=== PATIENT | female | born 1935 | race Caucasian/White ===

== ENCOUNTER 2020-08-11 16:41 | Emergency (ER) | payer MEDICARE, BC ==
[~2020-08-11] VITALS: Ht 165.1 cm; Wt 54.4 kg
[~2020-08-11 16:41] MED LIST: ASPIRIN325 PO; BENICAR PO; FAMOTIDINE PO; NORVASC10 MG PO; PRAVACHOL40 MG PO
[2020-08-11] MEDS ORDERED: HYDROCHLOROTHIA25 M1 PO (16:57)
[2020-08-11] MEDS ORDERED: COZAAR 25 MG TA25 M1 PO (16:58)
[2020-08-11 17:34] LABS: HEMATOCRIT 33.1 % (37.0-47.0); HEMOGLOBIN 10.9 gm/dL (12.0-15.0); MCH 29.3 pg (26.0-34.0); MCV 88.9 fL (80.0-100.0); MPV 8.4 fl. (7.2-11.1); NUCLEATED RBCS 0 /100WBC; PLATELET COUNT* 270 thou/uL (150-400); RBC 3.72 mil/uL (4.20-5.00); RDW-CV 13.2 % (10.5-14.5); WBC 19.7 thou/uL (4.0-11.0)
[2020-08-11 17:37] LABS: CALCIUM 8.7 mg/dL (8.5-10.1); CREATININE 1.8 mg/dL (0.6-1.3); POTASSIUM 3.5 mmol/L (3.5-5.1)
[2020-08-11 17:49] LABS: ALBUMIN 2.7 g/dL (3.4-5.0); TOTAL BILIRUBIN 0.7 mg/dL (<0.1-1.0); TOTAL PROTEIN 6.7 g/dL (6.4-8.2)
[2020-08-11 18:01] LABS: ABSOLUTE EOSINOPHILS 0.4 thou/uL (0.0-0.7); ABSOLUTE LYMPHOCYTES 0.8 thou/uL (0.8-5.3); ABSOLUTE MONOCYTES 0.4 thou/uL (0.0-1.2); ABSOLUTE NEUTROPHILS 18.1 thou/uL (1.6-8.1); ATYPICAL LYMPHS 2 %; PLATELET ESTIMATE ADEQUATE
[2020-08-11 22:07] VITALS: BP 144/62
--- NOTE | 2020-08-12 12:32 | EKG ---
[place] [address] ELECTROCARDIOGRAM REPORT Name: CABANRIGO Room: [facility]#: [id number] Admission: 08/11/20 Attend Phys: Discharge: 08/11/20 Date of : 35 Date of Service: 08/11/202044 Report #: [id number] THIS REPORT FOR: //name// [facility] ED Test Date: 2020-08-11 Test Time: 20:45:00 Pat Name: RIGO CABAN Department: Room: Gender: F Guest Services Associate: [place] : 1935 Requested By: Aurora Landis Order Number: [id number] MD: Jose Cruz Anderson Measurements Intervals Sellers Rate: 93 P: 23 NJ: 160 QRS: 20 QRSD: 84 T: 1 QT: 352 QTc: 438 Interpretive Statements Sinus rhythm Borderline ST depression, anterolateral leads Compared to ECG 04/17/2014 17:18:13 No significant changes Electronically Signed On 08-12-2020 12:32:02 CDT by Jose Cruz Anderson [email or web address] <ELECTRONICALLY SIGNED> By: Jayashree Anderson MD, [facility] 08/12/20 1232 44 44 Jayashree Anderson MD, [facility] /EPI
== END 2020-08-11 22:07 | disposition still patient (30) ==
LOC: M.ERS 16:41
PROVIDERS: Physician Assistant
DX: M54.2 Cervicalgia (principal); D72.829 Elevated white blood cell count, unspecified; G89.18 Other acute postprocedural pain; M54.6 Pain in thoracic spine; Z20.822 Contact with and (suspected) exposure to COVID-19; I10 Essential (primary) hypertension; Z90.710 Acquired absence of both cervix and uterus